=== PATIENT | male | born 1990 | race Caucasian/White ===

== ENCOUNTER 2022-10-08 02:11 | Emergency (ER) | payer SELFPAY ==
[~2022-10-08] VITALS: Ht 177.8 cm; Wt 85.0 kg
[2022-10-08 02:31] VITALS: BP 132/57
[2022-10-08] MEDS ORDERED: NALOXONE HCL 0.4 MG/ML 1ML VIAL IM ONE (03:15)
[2022-10-08] MEDS ORDERED: NALO4SPR BOTHNSTRLS (03:44)
== END 2022-10-08 04:08 ==
LOC: ER 02:11
DX: T40.411A Poisoning by fentanyl or fentanyl analogs, accidental (unintentional), initial encounter (principal); X58.XXXA Exposure to other specified factors, initial encounter; F15.10 Other stimulant abuse, uncomplicated; F11.10 Opioid abuse, uncomplicated
CPT/HCPCS: 96372; 99283; J2310